=== PATIENT | male | born 1955 | race Caucasian/White ===

== ENCOUNTER 2025-03-14 18:45 | Emergency (ER) | payer MEDICARE, MEDICAID, SELFPAY ==
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
[2025-03-14 18:45] VITALS: BP 168/77; PULSE 84; RESP 18; TEMP 36.6; O2SAT 100
--- NOTE | 2025-03-14 19:18 | PC.NURSE ---
Report received from RULA Dumont. Assumed care of patient at this time.
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
[2025-03-14] MEDS: TETANUS,DIPHTHERIA,AC PERTUSSIS ADULT (0.5 ML) BOOSTRIX IM (19:31)
--- NOTE | 2025-03-14 20:08 | PC.NURSE ---
Patient moved from room 13 to nurses station in [facility]. Patient waiting for transport back to [place].
== END 2025-03-14 22:19 ==
PROVIDERS: Emergency Provider Student in an Organized Health Care Education/Training Program
DX: S01.01XA Laceration without foreign body of scalp, initial encounter (principal); Y00.XXXA Assault by blunt object, initial encounter; F03.90 Unspecified dementia, unspecified severity, without behavioral disturbance, psychotic disturbance, mood disturbance, and anxiety; Z23 Encounter for immunization
CPT/HCPCS: 12001; 70450; 90471; 90715; 99284